=== PATIENT | male | born 1940 | race Caucasian/White ===

== ENCOUNTER → 2016-11-06 | Outpatient (CLI) | payer OTHER, BC | LOC: FIMAGING 10:11 | PROVIDERS: ATTEND Psychiatry & Neurology Neurology | DX: R94.02 Abnormal brain scan (principal); J01.30 Acute sphenoidal sinusitis, unspecified; M99.71 Connective tissue and disc stenosis of intervertebral foramina of cervical region; M50.320 Other cervical disc degeneration, mid-cervical region, unspecified level; M50.323 Other cervical disc degeneration at C6-C7 level ==

== ENCOUNTER → 2016-11-17 | Outpatient (CLI) | payer OTHER, BC ==
--- NOTE | 2016-11-17 11:35 | CPEEG ---
[f rep st] ELECTROENCEPHALOGRAM DATE OF STUDY: 11/17/2016 DATE OF INTERPRETATION: 11/17/2016. INTERPRETATION: Normal EEG during wakefulness and partial sleep. There were no potentially epilept ogenic abnormalities present during the recording. REPORT: This EEG contains 9-10 Hz alpha activity to the posterior head regions. There was no abnor mal activation at rest, during photic stimulation or hyperventilation. The patient became drowsy an d intermittently fell into light sleep during the study. There was no abnormal activation during dr owsiness, light sleep, or during times of arousal. /[id number]/MODL
== END ==
LOC: FCPNEURO 08:47
PROVIDERS: ATTEND Psychiatry & Neurology Neurology
DX: R42 Dizziness and giddiness (principal)

== ENCOUNTER → 2018-09-13 | Outpatient (CLI) | payer OTHER, BC | LOC: FIMAGING 12:57 | PROVIDERS: ATTEND Orthopaedic Surgery | DX: M17.0 Bilateral primary osteoarthritis of knee (principal); K57.30 Diverticulosis of large intestine without perforation or abscess without bleeding; N40.0 Benign prostatic hyperplasia without lower urinary tract symptoms ==

== ENCOUNTER → 2018-09-20 | Outpatient (CLI) | payer OTHER, BC | LOC: FIMAGING 12:25 | PROVIDERS: ATTEND Orthopaedic Surgery | DX: M17.0 Bilateral primary osteoarthritis of knee (principal); M71.22 Synovial cyst of popliteal space [Baker], left knee; K57.30 Diverticulosis of large intestine without perforation or abscess without bleeding; N40.0 Benign prostatic hyperplasia without lower urinary tract symptoms ==

== ENCOUNTER 2018-09-21 05:52 | Observation (INO) | payer OTHER, BC ==
--- NOTE | 2018-09-09 09:05 | GHP ---
DATE OF ADMISSION: 09/21/2018 He will be an a.m. admission for surgery at the hospital on September 21, 2018. PROBLEM: Left knee arthritis. HISTORY OF PRESENT ILLNESS: The patient is a 78-year-old man admitted for a left total knee arthropl asty. He has bilateral knee degenerative arthritis. He has had progressive pain for the past 5 or 6 years. In the last couple of years, it has been particularly severe. He is using aspirin. The jared n is now significantly limiting his quality of life and his activities. PAST MEDICAL HISTORY: Six years ago he had a myocardial infarction. He had stents. He takes Cresto r for elevated cholesterol. Three years ago, he had a coronary arteriogram and was told that his cor onary arteries look good. 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 He also has early dementia. He is hearing impaired. No history of DVT, hepatitis, MRSA staph infection, or hereditary bleeding disorde rs. CURRENT MEDICATIONS: Two baby aspirins per day. Crestor 40 mg per day. ALLERGIES: Drug allergies: None. Metal allergy: None. Latex allergy: None. SOCIAL HISTORY: The patient is . He does not smoke cigarettes and occasionally drinks alcoho l. He is retired. FAMILY HISTORY: Noncontributory. PHYSICAL EXAMINATION: VITAL SIGNS: Height 6 feet 1 inch. Weight 165 pounds. BMI 21.8. EYES: Con junctivae and sclerae are clear. Pupils are round and reactive. MOUTH: Good oral hygiene. No loos e teeth. CHEST: Clear. HEART: Regular rhythm. No murmurs. EXTREMITIES: Pertinent findings are limited to his left knee. He has a 5 degree flexion contracture and further flexion to 130 degrees. His ligaments are stable. He has a small effusion. Mild patellofemoral crepitation with active kne e extension. IMAGING: Films show medial compartment degenerative arthritis and severe patellofemoral arthritis in his left knee. He has advanced medial compartment degenerative arthritis in his right knee. IMPRESSION ON ADMISSION: 1. Left knee medial compartment degenerative arthritis and patellofemoral arthritis. He will underg o a left total knee arthroplasty. 2. Coronary artery disease. History of myocardial infarction. 3. Sleep apnea. 4. Hearing impaired. 5. Early dementia. 6. Right knee degenerative arthritis. PLAN: He will undergo a left total knee arthroplasty. The surgery has been described to him, includ ing the risks, complications, expectations, and recovery time. All his questions have been answered, and he consents to surgery. I have advised him that a small percentage of people do not get a good result with a total knee replacement and sometimes we cannot correct that. /[id number]/MODL
[2018-09-21] MEDS ORDERED: ROPIVACAINE 0.2% 80 MG, EPINEPHrine 0.2 MG, KETOROLAC TROMETHAMINE 30 MG in SYRINGE 0 ML IU ONE (06:00)
[2018-09-21] MEDS ORDERED: TRANEXAMIC ACID 3,000 MG in NS (SYRINGE) 50 ML IRR ONE (06:00)
[2018-09-21] MEDS ORDERED: POVIDONE-IODINE 20 ML in SODIUM CL IRRIG SOLUTION 500 ML IRR ONE (06:00)
[2018-09-21] MEDS ORDERED: TRANEXAMIC ACID 1,000 MG in NS 100 ML IV ONE (06:00)
[2018-09-21] MEDS ORDERED: ONDANSETRON 4 MG/2 ML VIAL IVP ONE (06:06)
[2018-09-21] MEDS ORDERED: DEXAMETHASONE 4 MG/ML VIAL IVP ONE (06:06)
[2018-09-21] MEDS ORDERED: FAMOTIDINE 20 MG TAB PO ONE (06:06)
[2018-09-21] MEDS ORDERED: ceFAZolin 2 GM/DEXTROSE 100 ML IV ONE (06:06)
[2018-09-21] MEDS ORDERED: ACETAMINOPHEN 325 MG TAB PO ONE (06:06)
[2018-09-21] MEDS ORDERED: GABAPENTIN 300 MG CAP PO ONE (06:06)
[2018-09-21] MEDS ORDERED: LR 1,000 ML IV ONE (06:09)
[2018-09-21] MEDS ORDERED: ONDANSETRON 4 MG/2 ML VIAL ONE ×2 (06:14→07:57)
[2018-09-21] MEDS ORDERED: ACETAMINOPHEN 325 MG TAB ONE (06:15)
[2018-09-21] MEDS ORDERED: DEXAMETHASONE 4 MG/ML VIAL ONE (06:16)
[2018-09-21] MEDS ORDERED: GABAPENTIN 300 MG CAP ONE (06:16)
[2018-09-21] MEDS ORDERED: CEFAZOLIN 2 GM/DEXTROSE/100 ML BAG IV ONE (06:16)
[2018-09-21] MEDS ORDERED: FAMOTIDINE 20 MG TAB ONE (06:16)
--- NOTE | 2018-09-21 06:49 | PDANEPAE ---
ANE History of Present Illness Left knee DJD, here for L TKA ANE Past Medical History - Cardiovascular History Hx Hypertension: No Hx Arrhythmias: No Hx Chest Pain: No Hx Coronary Artery / Peripheral Vascular Disease: Yes Hx CHF / Valvular Disease: No Hx Palpitations: No Cardiovascular History Comment: linq monitor - Pulmonary History Hx COPD: No Hx Asthma/Reactive Airway Disease: No Hx Recent Upper Respiratory Infection: No Hx Oxygen in Use at Home: Yes O2 in Use at Home (L/minute): 1.5 L when sleeping Hx Sleep Apnea: Yes Sleep Apnea Screening Result - Last Documented: Positive Pulmonary History Comment: PEEWEE not using CPAP machine, caused asthma. obstructive and central PEEWEE - Neurologic History Hx Cerebrovascular Accident: No Hx Seizures: No Hx Dementia: No - Endocrine History Hx Diabetes: No - Renal History Hx Renal Disorders: No - Liver History Hx Hepatic Disorders: No - Neurological & Psychiatric Hx Hx Neurological and Psychiatric Disorders: Yes Neurological / Psychiatric History Comment: depression - Cancer History Hx Cancer: No - Congenital Disorder History Hx Congenital Disorders: No - GI History Hx Gastrointestinal Disorders: No - Other Health History Other Health History: none - Chronic Pain History Chronic Pain: Yes (right knee) - Surgical History Prior Surgeries: 2011 required IABP stent to LAD. previously stent to circumflex. hiatel hernia repair. bilat inguinal hernia repair ANE Review of Systems Review of Systems: - Exercise capacity METS (RN): 4 METS ANE Patient History - Allergies Allergies/Adverse Reactions: LACTOSE INTOL Allergy (Intermediate, Uncoded 03/16/18 21:42) ACID REFLUX - Home Medications Home Medications: Cyanocobalamin (Vitamin B-12) [Vitamin B-12] 1,000 mcg PO DAILY 11/19/12 [Last Taken 09/14/18] Multivitamins [Multivitamin (*)] 1 each PO DAILY 11/19/12 [Last Taken 09/14/18] Rosuvastatin Calcium [Crestor 40mg (*)] 40 mg PO DAILY 11/19/12 [Last Taken ] Aspirin 162 mg PO DAILY 01/27/14 [Last Taken 09/14/18] Cholecalciferol (Vitamin D3) [Vitamin D3] 5,000 unit PO DAILY 03/03/16 [Last Taken 09/14/18] - NPO status NPO Since - Liquids (Date): 09/21/18 NPO Since - Liquids (Time): 02:00 NPO Since - Solids (Date): 09/20/18 NPO Since - Solids (Time): 18:00 - Smoking Hx Smoking Status: Former smoker - Family Anes Hx Family Hx Anesthesia Complications: sister electrolytes imbalanced. very sensitive to medications ANE Labs/Vital Signs - Vital Signs Blood Pressure: 113/76 Heart Rate: 59 Respiratory Rate: 12 O2 Sat (%): 96 Height: 185.42 cm Weight: 74.843 kg ANE Physical Exam - Airway Neck exam: FROM Mallampati Score: Class 2 Mouth exam: normal dental/mouth exam - Pulmonary Pulmonary: no respiratory distress, reduced air movement - Cardiovascular Cardiovascular: regular rate and rhythym, no murmur, rub, or gallop - ASA Status ASA Status: III ANE Anesthesia Plan Anesthesia Plan: GA with mask, spinal Regional Anesthesia: single shot NB Total IV Anesthesia: Yes
[2018-09-21] MEDS ORDERED: TRANEXAMIC ACID 3,000 MG/50 ML BAG IRR ONE (06:53)
[2018-09-21] MEDS ORDERED: MIDAZOLAM 2 MG/2 ML VIAL IVP ONE (06:54)
[2018-09-21] MEDS ORDERED: VANCOMYCIN 1 GM VIAL ONE (06:54)
[2018-09-21] MEDS ORDERED: ceFAZolin 1 GM/5 ML SYR ONE (06:54)
[2018-09-21] MEDS ORDERED: MIDAZOLAM 2 MG/2 ML VIAL ONE (06:55)
--- NOTE | 2018-09-21 07:01 | PDHPUP ---
History & Physical Update H&P update statement: This history and physical update is based on an assessment of the patient which was completed after admission or registration (within 24 hours), but prior to the surgery/procedure. H&P update: H&P reviewed & patient examined
[2018-09-21] MEDS ORDERED: fentaNYL 100 MCG/2 ML INJ ONE (07:05)
[2018-09-21] MEDS ORDERED: LIDOCAINE 2% 100 MG/5 ML SYR ONE (07:05)
[2018-09-21] MEDS ORDERED: BUPIVACAINE/DEXTROSE 7.5MG/ML 2 ML SPINAL AMP SP ONE (07:05)
[2018-09-21] MEDS ORDERED: PROPOFOL/EMULSION 500 MG/50 ML BOTTLE IV ONE (07:06)
[2018-09-21] MEDS ORDERED: ATROPINE SULFATE 1 MG/ML VIAL ONE (07:57)
[2018-09-21] MEDS ORDERED: PHENYLEPHRINE HCL 100 MCG/ML SYR ONE (07:57)
[2018-09-21] MEDS ORDERED: ROPIVACAINE HCL 150 MG/30 ML INJ ONE (07:57)
[2018-09-21] MEDS ORDERED: MEPERIDINE 25 MG/0.5 ML AMP IVP PRN (08:13)
[2018-09-21] MEDS ORDERED: NALOXONE HCL 0.4 MG/ML INJ IVP PRN (08:13)
[2018-09-21] MEDS ORDERED: oxyCODONE IR 5 MG TAB PO PRN (08:13)
[2018-09-21] MEDS ORDERED: fentaNYL 100 MCG/2 ML INJ IVP PRN (08:13)
[2018-09-21] MEDS ORDERED: ACETAMINOPHEN 500 MG TAB PO PRN (08:13)
[2018-09-21] MEDS ORDERED: DIAZEPAM 5 MG/ML 1 ML SYR IVP PRN (08:13)
[2018-09-21] MEDS ORDERED: LR 500 ML IV PRN (08:13)
[2018-09-21] MEDS ORDERED: HYDROmorphONE/DILAUDID 2 MG/ML INJ IVP PRN (08:13)
[2018-09-21] MEDS ORDERED: PROPOFOL 200 MG/20 ML VIAL ONE (08:52)
--- NOTE | 2018-09-21 09:29 | POSTOPPROG ---
Post Op Note Date of Operation: 09/21/18 Surgeon: Kyle Alonso Automotive Lot Attendant: Halina Anesthesiologist: Bandar Anesthesia: IV Sedation, Spinal Post-op Diagnosis: Left knee severe degenerative arthritis. Procedure: Left total knee arthroplasty, Bossman robot assisted. Inf/Abcess present in the surg proc area at time of surgery?: No EBL: 50-100 (Adductor canal block in PACU with indwelling catheter.)
[2018-09-21] MEDS ORDERED: ONDANSETRON DISINTEGRATING 4 MG TAB PO PRN (09:40)
[2018-09-21] MEDS ORDERED: POLYETHYLENE GLYCOL 3350 17 GM PKT PO PRN (09:40)
[2018-09-21] MEDS ORDERED: ONDANSETRON 4 MG/2 ML VIAL IVP PRN (09:40)
[2018-09-21] MEDS ORDERED: MAGNESIUM HYDROXIDE 30 ML UDCUP PO PRN (09:40)
[2018-09-21] MEDS ORDERED: BISACODYL 10 MG SUPP PR PRN (09:40)
[2018-09-21] MEDS ORDERED: PROMETHAZINE HCL 25 MG/ML INJ IVP PRN (09:40)
[2018-09-21] MEDS ORDERED: LACTULOSE 20 GM/30 ML UDCUP PO PRN (09:40)
[2018-09-21] MEDS ORDERED: NS 500 ML IV PRN (09:40)
[2018-09-21] MEDS ORDERED: diphenhydrAMINE 25 MG CAP PO PRN (09:40)
[2018-09-21] MEDS ORDERED: CYCLOBENZAPRINE 10 MG TAB PO PRN (09:40)
[2018-09-21] MEDS ORDERED: METOCLOPRAMIDE 10 MG/2 ML VIAL IVP PRN (09:40)
[2018-09-21] MEDS ORDERED: DIPHENOXYLATE/ATROPINE LOMOTIL 1 TAB PO PRN (09:40)
[2018-09-21] MEDS ORDERED: TEMAZEPAM 15 MG CAP PO PRN (09:40)
[2018-09-21] MEDS ORDERED: PROMETHAZINE HCL 25 MG SUPPR PR PRN (09:40)
[2018-09-21] MEDS ORDERED: LR 1,000 ML IV SCH (10:00)
--- NOTE | 2018-09-21 10:16 | GOP ---
DATE OF OPERATION: 09/21/2018 SURGEON: Kyle Alonso MD TALLOW REFINER: MIRIAN Courtney. Cameron Pollard CFA. ANESTHESIA: A combination of Marcaine, spinal, IV sedation, and adductor canal block. PREOPERATIVE DIAGNOSIS: Left knee severe degenerative arthritis. POSTOPERATIVE DIAGNOSIS: Left knee severe degenerative arthritis. PROCEDURE PERFORMED: A left knee Bossman robot-assisted total knee arthroplasty Thomas Gavin. FINDINGS: DESCRIPTION OF PROCEDURE: The patient was given 2 g of IV Ancef preoperatively within 60 minutes of surgery. He also received 1000 mg of IV tranexamic acid. He was placed on the operating room table and given spinal anesthesia with Marcaine by Dr. Ena Portillo. He was then placed supine and given IV sedation. A Hill catheter was not used. He wore a YULIET stocking and SCD on the nonoperative leg. His left lower extremity was prepped with ChloraPrep from the upper thigh tourniquet to the tips of the toes. It was draped free using sterile sheets, stockinette, and Ioban plastic adhesive drapes. The lower leg was wrapped with compressive Coban. The World Health Organization time-out was performed to verify the correct patient identity and the correct surgical side and site. The [place] time-out was also performed. The Aspyrao leg holding device was sterilely attached to the operating room table and used throughout the procedure to help position the knee. Two 3 mm partially threaded pins were inserted in a bicortical fashion in the anteromedial cortex of the tibia about 4 inches distal to the tibial tubercle. The leg was exsanguinated with elevation and a 6-inch wrap, and the tourniquet was inflated to 250 mmHg. I made a straight midline incision centered on the patella. Subcutaneous tissues were sharply divided, and hemostasis was obtained using electrocautery. A medial subcutaneous flap was developed, and the capsule and synovium were opened in a medial parapatellar fashion. His medial capsule was lightly elevated off the rim of the medial tibial plateau. Two 3 mm partially threaded pins were inserted in the medial cortex of the distal femur in the supracondylar region through the surgical incision. The femoral check point was inserted just anterior and in between the 2 pins. The tibial check point was inserted on the anteromedial cortex of the tibia about an inch distal to the joint line. The computer arrays were attached and I confirmed that both the femur and tibial arrays were visualized by the computer. In order to improve the exposure, the patella was prepared first. The original thickness of the patella was measured. Peripheral osteophytes were removed. I cut a flat surface on the back of the patella. He was sized for a 38 mm asymmetric patella, which was 11 mm in thickness. I removed enough bone from the patella such that the remaining bone plus the thickness of the patellar component recreated the original thickness of the patella. The composite thickness was 25 mm. The bony anatomy of the knee was registered on the computer starting with the center rotation of the femoral head followed by the medial and lateral malleoli. The femoral and tibial surface anatomy were registered. Peripheral osteophytes on the edge of the femoral condyles were then removed. I performed dynamic joint balancing. He was slightly tight medially. The preoperative plan called for a size 6 femur and a size 6 tibia. In order to achieve proper gap balancing in extension and flexion, I moved the femoral component anteriorly 2 mm, the femoral component distally 1 mm, and added 1 degree of varus to the proximal tibia. The final gaps were 18 and 19 mm. The gaps were equal in full extension, and 90 degrees of flexion. The robotic saw was brought in and registered. I made the appropriate cuts on the distal femur. The robot was then used to make my proximal tibial cut. I used the jig and reciprocating saw to create the notch in the distal femur to accommodate the posterior stabilized femoral component. The size 6 femoral trial was applied. I was careful that it was centered properly on the distal femur. The posterior compartment was cleared of meniscal remnants. Osteophytes were removed from the back of the femoral condyles. 40 mL of the joint anesthetic cocktail was injected into the posterior capsule, the quadriceps muscle and tendon areas, and the subcutaneous tissues along the skin edges. The tibia was sized for a size 6 component. The central fin punch was used. He had excellent quality bone, and I was using press-fit components. With the trial components in place, I selected a 9 mm posterior stabilized tibial insert. The knee came to within 2 or 3 degrees of full extension and flexed to 135 degrees. The collateral ligaments were stable and balanced in full extension and 90 degrees of flexion. His computer gaps were 18-19 mm medially and laterally in 90 degrees of flexion and full extension. The press-fit tibial component was inserted and tapped securely into place. It was very tight. The femoral component was tapped into place and was an excellent fit. The 9 mm Triathlon posterior stabilized plastic insert was inserted and locked into place. The 38 mm asymmetric Thomas Triathlon Tritanium patellar component was inserted. I used a tightening device to compress it into the patellar bone. The knee lacked a couple of degrees of full extension and flexed to 135 degrees. The tourniquet was deflated. The total tourniquet time was 1 hour and 15 minutes. The knee was thoroughly irrigated with a dilute Betadine solution. 50 cc of tranexamic acid solution was instilled into the joint and left there. The vastus medialis portion of the extensor mechanism was repaired with several interrupted [id number] #2 FiberWire sutures. The capsule and synovium were closed first with multiple interrupted [id number] 0 PDS sutures, followed by a running #2 barbed Ethicon Stratafix PDO suture. Subcutaneous tissues were closed with a running 0 barbed Ethicon Stratafix Monoderm suture. The skin was closed with a running 3-0 barbed Ethicon Stratafix Monoderm subcuticular suture. The skin was sealed with half-inch Steri-Strips. The wound was covered with a large sterile Mepilex waterproof dressing. The knee was wrapped with a 6-inch compressive wrap. A long-leg YULIET stocking and SCD were applied, followed by the cooling device. The sacral Mepilex dressing was applied. I used a size 6 Thomas Triathlon press-fit posterior stabilized femoral component, a size 6 Triathlon Tritanium press-fit tibial component, a 38 mm x 11 mm asymmetric patellar component, and a 9 mm posterior stabilized tibial insert. The sponge and needle count were correct on 2 occasions. He was awakened from anesthesia, transferred to his gurney, and taken to PACU in satisfactory condition. There were no recognized intraoperative complications. In the PACU, for additional postoperative pain control, Dr. Portillo performed an adductor canal block with an indwelling catheter. Tñoo Pennington and Cameron Pollard acted as surgical assistants. Their assistance was a medical necessity for safe completion of the procedure. Copy requested to: [facility] Cameron Pollard [facility] /[id number]/MODL MTDD
--- NOTE | 2018-09-21 10:31 | POSTANESTH ---
Post Anesthetic Evaluation Cardiovascular Status: Normal, Stable Respiratory Status: Normal, Stable Level of Consciousness/Mental Status: Can Participate in Eval, Alert and Oriented Pain Control: Adequate, Prn Tx Ordered Nausea/Vomiting Control: Adequate, Prn Tx Ordered Complications Possibly Related to Anesthesia: None Noted (AC catheter done without comp under steril conditions)
[2018-09-21] MEDS: oxyCODONE IR 5 MG TAB PO PRN ×2 (10:58→15:00)
[2018-09-21] MEDS: ACETAMINOPHEN 325 MG TAB PO SCH ×3 (12:03→23:01)
[2018-09-21] MEDS: KETOROLAC 15 MG/1 ML SDV IVP SCH ×3 (12:03→23:01)
[2018-09-21] MEDS: ceFAZolin 2 GM/DEXTROSE 100 ML IV SCH ×2 (13:51→20:32)
[2018-09-21] MEDS: ASPIRIN 325 MG TAB PO SCH (20:32)
[2018-09-21] MEDS: SENNOSIDES/DOCUSATE SODIUM TAB PO SCH (20:32)
[2018-09-21] MEDS: FAMOTIDINE 20 MG TAB PO SCH (20:34)
[2018-09-22] MEDS: ACETAMINOPHEN 325 MG TAB PO SCH ×2 (05:38→11:35)
[2018-09-22] MEDS: KETOROLAC 15 MG/1 ML SDV IVP SCH (05:38)
[2018-09-22] MEDS ORDERED: FERROUS SULFATE 325 MG TAB PO SCH (08:00)
[2018-09-22] MEDS ORDERED: LIPID EMULSION 20% 100 ML IV PRN (08:21)
[2018-09-22] MEDS: FAMOTIDINE 20 MG TAB PO SCH (09:00)
[2018-09-22] MEDS: ASPIRIN 325 MG TAB PO SCH (09:00)
[2018-09-22] MEDS: SENNOSIDES/DOCUSATE SODIUM TAB PO SCH (09:00)
[2018-09-22] MEDS ORDERED: ROSUVASTATIN CALCIUM 40 MG TAB PO SCH (09:00)
--- NOTE | 2018-09-22 10:14 | PDPAINCON ---
Pain Management Consultation Patient referred by : Celeste - Subjective Pain at rest (/10): 2 Pain with activity (/10): 3 Pain is: low, well controlled Side effects include: No drowsy, No itchiness, No nausea Activity: able to ambulate - Objective Site: femoral Catheter site: clean, dry, intact, no erythema/edema/exudate Sensory and motor exam: consistent with block Vital signs: stable - Assessment/Plan Assessment/Plan: other Additional comments: Bolused catheter with ropivicane 0.5% 20 ml. aspiration q 5ml, negative heme. Pt tolerated well. Catheter removed, atraumatic, tip intact. Pt may d/c to home.
--- NOTE | 2018-09-22 11:16 | SOAPPROG ---
SOAP Progress Note Assessment/Plan: Assessment: Afebrile. Awake and alert. Has been walking in tavares. ROM 5-110 degrees. Films look excellent. H/H is good. Plan:DC when cleared by PT. 09/22/18 11:15 Objective: Vital Signs Temp Pulse Resp BP Pulse Ox 36.5 C 72 16 104/67 92 09/22/18 08:00 09/22/18 08:00 09/22/18 08:00 09/22/18 08:00 09/22/18 08:00 Laboratory Results 09/22/18 04:24 09/21/18 09/22/18 09/23/18 05:59 05:59 05:59 Intake Total 3090 Output Total 2600 325 Balance 490 -325 ICD10 Worksheet Patient Problems: Problems Problem Status Onset Osteoarthritis of left knee Acute Nausea Acute
[2018-09-22 11:30] VITALS: BP 101/58
--- NOTE | 2018-09-22 11:32 | ASMTLACE ---
RUBINA Length of stay for Answers: 2 days current admission Acuity / Level of Answers: No Care: Did the patient have an inpatient admission? Comorbidities - select Answers: Coronary Artery Disease all that apply Opioid dependence / Chronic pain Previous myocardial infarction # of Emergency department Answers: 1-2 visits in the last 6 months Social determinants Answers: Mental health diagnosis (anxiety, depression, pers onality disorders, etc.) Score: 13 Date Signed: 09/22/2018 11:31 AM Electronically Signed By:GINETTE Keating
--- NOTE | 2018-09-22 11:33 | ASMTCMCOM ---
CM Note CM Note Notes: Pt had planned OA of knee. PT rec home/outpatient. Pt medically stable for d/c with spouse. No CM d/c needs identified. Date Signed: 09/22/2018 11:33 AM Electronically Signed By:GINETTE Keating
[2018-09-22] MEDS: oxyCODONE IR 5 MG TAB PO PRN (11:36)
--- NOTE | 2018-09-22 11:36 | GDS ---
ADMISSION DIAGNOSIS: Left knee severe degenerative arthritis. DISCHARGE DIAGNOSIS: Left knee severe degenerative arthritis. OPERATION PERFORMED: September 21, 2018, a left total knee arthroplasty, Bossman robot assisted. POSTOPERATIVE COMPLICATIONS: None. CONDITION ON DISCHARGE: Improved. DESCRIPTION OF HOSPITAL COURSE: The patient was admitted to the hospital the morning of surgery. Hi s admission CBC was normal. The same day, under a combination of Marcaine, spinal, IV sedation, and adductor canal block, he underwent a Bossman assisted left total knee arthroplasty. Postoperatively, he was treated with multimodal DVT prophylaxis, including aspirin. On the first postoperative day, his hemoglobin and hematocrit were 13.6 and 39.4. He required urinar y catheterization 2 times on the evening of surgery. After that, he was able to void spontaneously. He was seen by Physical Therapy and made rapid progress with ambulation, stairs, and knee range of m otion. By the time of discharge, he was afebrile and was independent walking with his walker. DISPOSITION: The patient discharged to his home. [facility] He may progress to full weightbearing on the left as tolerated. Work on range of motion. Con natalieue YULIET stockings for 1 week. Continue aspirin 325 mg p.o. daily for 21 days. He has prescription s for Celebrex, oxycodone, and tramadol for pain control. I will see him back in the office on 2018. If there are any problems, he is to call me at the office. /[id number]/MODL
== END 2018-09-22 12:04 | disposition home or self-care (01) ==
LOC: F3N 05:52 → INTOOBSV 05:52 → F3N 10:39
PROVIDERS: ADMIT Orthopaedic Surgery; ATTEND Orthopaedic Surgery
DX: M17.12 Unilateral primary osteoarthritis, left knee (principal); E78.5 Hyperlipidemia, unspecified; G47.33 Obstructive sleep apnea (adult) (pediatric); I25.10 Atherosclerotic heart disease of native coronary artery without angina pectoris; I25.2 Old myocardial infarction; H91.90 Unspecified hearing loss, unspecified ear; F03.90 Unspecified dementia, unspecified severity, without behavioral disturbance, psychotic disturbance, mood disturbance, and anxiety; Z79.82 Long term (current) use of aspirin; Z87.891 Personal history of nicotine dependence; Z82.49 Family history of ischemic heart disease and other diseases of the circulatory system; Z82.3 Family history of stroke; Z95.5 Presence of coronary angioplasty implant and graft
CPT/HCPCS: 27447; 73560; 77073; 88311; 97110; 97116; 97161; 97165; 97530; C1776; J0171; J0461; J0690; J1100; J1885; J2001; J2250; J2370; J2405; J2704; J2795; J3010; J3370

== ENCOUNTER → 2018-12-01 | Outpatient (CLI) | payer OTHER, BC | LOC: FIMAGING 17:39 | PROVIDERS: ATTEND Psychiatry & Neurology Neurology | DX: G31.9 Degenerative disease of nervous system, unspecified (principal); J32.3 Chronic sphenoidal sinusitis | CPT/HCPCS: 70551-PN ==

== ENCOUNTER → 2018-12-22 | Outpatient (CLI) | payer OTHER, BC | LOC: FIMAGING 10:09 | PROVIDERS: ATTEND Orthopaedic Surgery | DX: M17.11 Unilateral primary osteoarthritis, right knee (principal) ==

== ENCOUNTER 2019-01-04 05:44 | Inpatient (IN) | payer OTHER, BC ==
--- NOTE | 2018-12-20 10:58 | GHP ---
[f rep st] PREOP HISTORY AND PHYSICAL He will be an a.m. admission for surgery at [facility] on January 04, 2019. PROBLEM: Right knee arthritis. HISTORY OF PRESENT ILLNESS: The patient is a 78-year-old man admitted for a right total knee arthrop lasty. He has a history of bilateral knee degenerative arthritis. He has had progressive pain for t he past 5 or 6 years. In the last couple of years, the pain has been particularly severe. The pain is significantly limiting the quality of his life and his activities. On September 21, 2018, he underw ent a left Bossman assisted robot total knee arthroplasty. He is making a good recovery from that surge ry. He is admitted now for a right total knee arthroplasty. PAST MEDICAL HISTORY: Six years ago he had a myocardial infarction. He had stents. He is on Cresto r for elevated cholesterol. Three years ago, he had a coronary arteriogram, and was told that his co ronary arteries looked good. 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 He has early dementia, and he cheung s hearing impairment. No history of DVT, hepatitis, MRSA staph infections or hereditary bleeding dis orders. CURRENT MEDICATIONS: 1. Two baby aspirins per day. He will stop that in preparation for the surgery. 2. Crestor 40 mg per day. ALLERGIES: Drug allergies: None. Metal allergy: None. Latex allergy: None. SOCIAL HISTORY: The patient is . He does not smoke cigarettes and occasionally drinks alcoho l. He is retired. FAMILY HISTORY: Noncontributory. PHYSICAL EXAMINATION: VITAL SIGNS: Height 6 feet 1 inch. Weight 165 pounds. BMI 21.8. EYES: The conjunctivae and sclerae are clear. Pupils are round and reactive. MOUTH: Good oral hygiene. No loose teeth. CHEST: Clear. HEART: Regular rhythm. No murmurs. EXTREMITIES: Pertinent findings limited to his right knee. He lacks a couple of degrees of full extension and flexes to 125 degrees. His ligaments are stable. He has a small effusion. He is tender along the medial joint line. Mil d pseudolaxity of his medial collateral ligament. Mild patellofemoral crepitation with active knee e xtension. IMAGING: Films show advanced medial compartment degenerative arthritis in the right knee. He also h as significant patellofemoral arthritis. IMPRESSION ON ADMISSION: 1. Right knee advanced medial compartment and patellofemoral arthritis. He is prepared for a right knee Bossman robot assisted total knee arthroplasty. 2. Approximately 3 months status post left total knee arthroplasty with a good result. 3. Coronary artery disease and history of myocardial infarction. 4. Early dementia. 5. Hearing impairment. PLAN: He will undergo a right total knee arthroplasty. The surgery has been described to him, inclu ding the risks, complications, expectations, and recovery time. I stressed the importance of postope rative physical therapy. I have advised him that with bilateral procedures, there can be mild side-t o-side differences in the recovery and even in the final result. All their questions have been answe red, and he consents to surgery. /[id number]/MODL
[2019-01-04] MEDS ORDERED: ONDANSETRON 4 MG/2 ML VIAL IVP ONE (05:54)
[2019-01-04] MEDS ORDERED: FAMOTIDINE 20 MG TAB PO ONE (05:54)
[2019-01-04] MEDS ORDERED: ACETAMINOPHEN 325 MG TAB PO ONE (05:54)
[2019-01-04] MEDS ORDERED: ceFAZolin 2 GM/DEXTROSE 100 ML IV ONE (05:54)
[2019-01-04] MEDS ORDERED: DEXAMETHASONE 4 MG/ML VIAL IVP ONE (05:54)
[2019-01-04] MEDS ORDERED: GABAPENTIN 300 MG CAP PO ONE (05:54)
[2019-01-04] MEDS ORDERED: LR 1,000 ML IV ONE (05:57)
[2019-01-04] MEDS ORDERED: TRANEXAMIC ACID 1,000 MG in NS 100 ML IV ONE (06:00)
[2019-01-04] MEDS ORDERED: TRANEXAMIC ACID 3,000 MG in NS (SYRINGE) 50 ML IRR ONE (06:00)
[2019-01-04] MEDS ORDERED: POVIDONE-IODINE 20 ML in SODIUM CL IRRIG SOLUTION 500 ML IRR ONE (06:00)
[2019-01-04] MEDS ORDERED: ROPIVACAINE 0.2% 80 MG, EPINEPHrine 0.2 MG, KETOROLAC TROMETHAMINE 30 MG in SYRINGE 0 ML IU ONE (06:00)
[2019-01-04] MEDS ORDERED: ceFAZolin 1 GM/5 ML SYR ONE (06:45)
[2019-01-04] MEDS ORDERED: TRANEXAMIC ACID 3,000 MG/50 ML BAG IRR ONE (06:47)
[2019-01-04] MEDS ORDERED: MIDAZOLAM 2 MG/2 ML VIAL IVP ONE (06:59)
[2019-01-04] MEDS ORDERED: MIDAZOLAM 2 MG/2 ML VIAL ONE (07:00)
[2019-01-04] MEDS ORDERED: PROPOFOL/EMULSION 500 MG/50 ML BOTTLE IV ONE ×3 (07:03→08:42)
[2019-01-04] MEDS ORDERED: BUPIVACAINE 0.5% 30 ML SDV ONE (07:04)
[2019-01-04] MEDS ORDERED: fentaNYL 100 MCG/2 ML INJ ONE (07:24)
[2019-01-04] MEDS ORDERED: ALBUTEROL 3 ML DEYVIAL IH PRN (07:54)
[2019-01-04] MEDS ORDERED: DEXAMETHASONE 4 MG/ML VIAL IVP PRN (07:54)
[2019-01-04] MEDS ORDERED: LABETALOL HCL 5 MG/ML 20 ML MDV IVP PRN (07:54)
[2019-01-04] MEDS ORDERED: NS 500 ML IV PRN ×2 (07:54→09:45)
[2019-01-04] MEDS ORDERED: NALOXONE HCL 0.4 MG/ML INJ IVP PRN (07:54)
[2019-01-04] MEDS ORDERED: oxyCODONE IR 5 MG TAB PO PRN ×2 (07:54→09:45)
[2019-01-04] MEDS ORDERED: HYDROCODONE/APAP 5/325 TAB PO PRN (07:54)
[2019-01-04] MEDS ORDERED: fentaNYL 100 MCG/2 ML INJ IVP PRN (07:54)
--- NOTE | 2019-01-04 07:54 | PDANEPAE ---
ANE History of Present Illness here for R TKA ANE Past Medical History - Cardiovascular History Hx Hypertension: No Hx Arrhythmias: No Hx Chest Pain: No Hx Coronary Artery / Peripheral Vascular Disease: Yes Hx CHF / Valvular Disease: No Hx Palpitations: No Cardiovascular History Comment: linq monitor - Pulmonary History Hx COPD: No Hx Asthma/Reactive Airway Disease: No Hx Recent Upper Respiratory Infection: No Hx Oxygen in Use at Home: Yes O2 in Use at Home (L/minute): 1.5 Hx Sleep Apnea: No Sleep Apnea Screening Result - Last Documented: Positive Pulmonary History Comment: PEEWEE not using CPAP machine, caused asthma. obstructive and central PEEWEE - Neurologic History Hx Cerebrovascular Accident: No Hx Seizures: No Hx Dementia: No - Endocrine History Hx Diabetes: No - Renal History Hx Renal Disorders: No - Liver History Hx Hepatic Disorders: No - Neurological & Psychiatric Hx Hx Neurological and Psychiatric Disorders: Yes Neurological / Psychiatric History Comment: depression - Cancer History Hx Cancer: No - Congenital Disorder History Hx Congenital Disorders: No - GI History Hx Gastrointestinal Disorders: No - Other Health History Other Health History: none - Chronic Pain History Chronic Pain: Yes (right knee) - Surgical History Prior Surgeries: 2011 required IABP stent to LAD. previously stent to circumflex. hiatel hernia repair. bilat inguinal hernia repair ANE Review of Systems Review of Systems: - Exercise capacity METS (RN): 4 METS ANE Patient History - Allergies Allergies/Adverse Reactions: lactose Allergy (Verified 12/16/18 14:13) - Home Medications Home Medications: Cyanocobalamin (Vitamin B-12) [Vitamin B-12] 1,000 mcg PO DAILY 11/19/12 [Last Taken 12/26/18] Multivitamins [Multivitamin (*)] 1 each PO DAILY 11/19/12 [Last Taken 12/26/18] Rosuvastatin Calcium [Crestor 40mg (*)] 40 mg PO DAILY 11/19/12 [Last Taken 03/18] Cholecalciferol (Vitamin D3) [Vitamin D3] 5,000 unit PO DAILY 03/03/16 [Last Taken 12/26/18] Aspirin [Aspirin 81mg (*)] 162 mg PO DAILY 12/16/18 [Last Taken 12/26/18] Ondansetron HCl [Zofran] 4 mg PO Q8HRS PRN 01/04/19 [Last Taken Unknown] celeCOXIB [Celebrex (*)] 200 mg PO DAILY 01/04/19 [Last Taken 01/03/19] oxyCODONE IR [Oxycodone Ir (*)] 5 - 10 mg PO Q4-6PRN PRN 01/04/19 [Last Taken Unknown] - NPO status NPO Since - Liquids (Date): 01/04/19 NPO Since - Liquids (Time): 05:00 NPO Since - Solids (Date): 01/03/19 NPO Since - Solids (Time): 18:00 - Smoking Hx Smoking Status: Former smoker - Family Anes Hx Family Hx Anesthesia Complications: sister electrolytes imbalanced. very sensitive to medications ANE Labs/Vital Signs - Vital Signs Blood Pressure: 108/78 Heart Rate: 61 Respiratory Rate: 16 O2 Sat (%): 93 Height: 185.42 cm Weight: 77.111 kg ANE Physical Exam - Airway Neck exam: FROM Mallampati Score: Class 1 - Pulmonary Pulmonary: no respiratory distress - Cardiovascular Cardiovascular: regular rate and rhythym - ASA Status ASA Status: III ANE Anesthesia Plan Anesthesia Plan: MAC, spinal
[2019-01-04] MEDS ORDERED: PHENYLEPHRINE HCL 100 MCG/ML SYR ONE (08:21)
[2019-01-04] MEDS ORDERED: DIPHENOXYLATE/ATROPINE LOMOTIL 1 TAB PO PRN (09:45)
[2019-01-04] MEDS ORDERED: METOCLOPRAMIDE 10 MG/2 ML VIAL IVP PRN (09:45)
[2019-01-04] MEDS ORDERED: CYCLOBENZAPRINE 10 MG TAB PO PRN (09:45)
[2019-01-04] MEDS ORDERED: POLYETHYLENE GLYCOL 3350 17 GM PKT PO PRN (09:45)
[2019-01-04] MEDS ORDERED: TEMAZEPAM 15 MG CAP PO PRN (09:45)
[2019-01-04] MEDS ORDERED: BISACODYL 10 MG SUPP PR PRN (09:45)
[2019-01-04] MEDS ORDERED: diphenhydrAMINE 25 MG CAP PO PRN (09:45)
[2019-01-04] MEDS ORDERED: PROMETHAZINE HCL 25 MG SUPPR PR PRN (09:45)
[2019-01-04] MEDS ORDERED: MAGNESIUM HYDROXIDE 30 ML UDCUP PO PRN (09:45)
[2019-01-04] MEDS ORDERED: ONDANSETRON 4 MG/2 ML VIAL IVP PRN (09:45)
[2019-01-04] MEDS ORDERED: LACTULOSE 20 GM/30 ML UDCUP PO PRN (09:45)
[2019-01-04] MEDS ORDERED: ONDANSETRON DISINTEGRATING 4 MG TAB PO PRN (09:45)
[2019-01-04] MEDS ORDERED: PROMETHAZINE HCL 25 MG/ML INJ IVP PRN (09:45)
[2019-01-04] MEDS ORDERED: traMADol 50 MG TAB PO PRN (09:45)
[2019-01-04] MEDS ORDERED: LR 1,000 ML IV SCH (10:00)
--- NOTE | 2019-01-04 10:15 | GOP ---
[f rep st] OPERATIVE REPORT DATE OF OPERATION: 01/04/2019 SURGEON: Kyle Alonso MD PERSONAL INJURY LITIGATION PARALEGAL: 1. Toño Pennington PA-C. 2. Cameron Pollard CFA. ANESTHESIA: Combination of Marcaine spinal, IV sedation, and adductor canal block. ANESTHESIOLOGIST: Dr. Heladio Carney. PREOPERATIVE DIAGNOSIS: Right knee severe degenerative arthritis with varus deformity. POSTOPERATIVE DIAGNOSIS: Same. PROCEDURE PERFORMED: Right total knee arthroplasty, Bossman robot assisted, press-fit. FINDINGS: DESCRIPTION OF PROCEDURE: The patient was given 2 g of IV Ancef preoperatively within 60 minutes of surgery. He also received 1000 mg of preoperative IV tranexamic acid. He was placed on the operatin g room table and given spinal anesthesia with Marcaine by Dr. Carney. He was then placed supine and given IV sedation. A Hill catheter was not used. He wore a YULIET stocking and SCD on the nonoperativ e leg. His right lower extremity was prepped with ChloraPrep from the upper thigh tourniquet to the tips of the toes. It was draped free using sterile sheets, stockinette, and Ioban plastic adhesive d rape. His lower leg was wrapped with compressive Coban. The [employer] time-out was performed to verify the correct patient identity and the c orrect surgical side and site. The [place] time-out was also performed. The TidePoolo leg holding gabriel ce was sterilely attached to the operating room table and used throughout the procedure to help posit ion the knee. Two 3 mm partially-threaded pins were inserted in a bicortical fashion on the anterome dial cortex of the tibia about 4-5 inches distal to the tibial tubercle. At this point, the leg was exsanguinated with elevation and a 6-inch compressive wrap, and the pneumatic tourniquet was inflated to 250 mmHg. A straight midline incision was made, centered on the patella. Subcutaneous tissues were sharply div ided, and hemostasis was obtained using electrocautery. A medial subcutaneous flap was developed, an d the capsule and synovium were opened in medial parapatellar fashion. His medial capsule and perios teum were lightly elevated off the rim of the medial tibial plateau. He had a significant preoperati ve varus deformity, and I released the medial collateral ligament a moderate amount. Two 3 mm partia lly-threaded pins were inserted in the medial cortex of the distal femur in the supracondylar region and inside the incision. The femoral checkpoint was inserted anterior and distal to the 2 bicortical pins. The tibial checkpoint was inserted in the anteromedial cortex of the tibia about an inch dist al to the joint line. The computer arrays were attached, and I confirmed that the femoral and tibial arrays were both visualized by the computer. The bony anatomy of the knee was registered on the computer starting with the center rotation of the femoral head followed by the medial and lateral malleoli. The femoral and tibial surface anatomy wer e registered. Osteophytes were removed prior to joint balancing. I performed a dynamic joint balancing. The preoperative plan called for a size 7 femur and size 6 ti tyler. In order to achieve proper gap balancing, I added 1 mm of varus to the femur and 1 additional d egree of external rotation. On the tibial side, I added 3 degrees of varus and moved the tibia 1 mm distal. I ended up with medial and lateral gaps of 18 and 19 mm in both flexion and extension. Preo peratively, he had 6 or 7 degree flexion contracture. The robotic saw was positioned and registered. I made all the appropriate cuts on the distal femur. The robot was then registered for the tibia, and the proximal tibial cut was made. I used the appro priate jig to create a notch in the distal femur using the power reciprocating saw in order to accomm odate the posterior stabilized femoral component. I was careful to center the component on the dista l femur. The posterior compartment was cleared of meniscal remnants. Osteophytes were removed from the back o f the femoral condyles. 40 mL of the joint anesthetic cocktail was injected into the posterior capsu le, the quadriceps muscle and tendon areas, and the subcutaneous tissues along the skin edges. The tibia was sized for a size 6 component. I used the central thin punch. I drilled 2 additional f ixation holes on the medial side of the tibial plateau for the press-fit component. He had very good quality bone on both the distal femur and proximal tibia. With the trial components in place, I bibiana ected a 9 mm posterior stabilized tibial insert. He came to full extension and flexed to 130 degrees . His collateral ligaments were stable and balanced in full extension and 90 degrees of flexion. e computer registered gaps of 18 to 19 mm medially and laterally in 10 degrees of flexion and 90 degr ees of flexion. The press-fit tibia was inserted and tapped securely into place. It was very tight. The press-fit f emoral component was tapped securely into place and was also very tight. The 9 mm Triathlon tibial i nsert was inserted and locked into place. The tourniquet was deflated, and total tourniquet time up until this point was 1 hour and 6 minutes. The procedure was completed without the tourniquet. I then prepared the patella. The original thic kness of the patella was measured. Peripheral osteophytes were removed. I cut a flat surface on the back of the patella. He was sized for a 38 mm x 11 mm asymmetric Triathlon Tritanium press-fit choi llar component. I removed enough bone from the patella such that the remaining bone plus the thickne ss of the patellar component recreated the original thickness of the patella. The composite thicknes s was 25 mm. The press-fit patellar component was applied and tightened. Patellar tracking was chec ked and was excellent without any digital pressure. The wound was thoroughly irrigated with a dilute Betadine solution. 50 cc of tranexamic acid solutio n was instilled into the joint. The vastus medialis portion of the extensor mechanism was repaired with several interrupted figure-of -eight #2 FiberWire sutures. The capsule and synovium were closed first with multiple interrupted fi [id number]-fv-dhrrt 0 PDS sutures, followed by a running #2 barbed Ethicon Stratafix PDO suture. The subcu taneous tissues were closed with a running 0 barbed Ethicon Stratafix Monoderm suture. The skin was closed with a running 3-0 barbed Ethicon Stratafix Monoderm subcuticular suture. The skin was sealed with half-inch Steri-Strips. The wound was covered with a large sterile Mepilex waterproof dressing . A long-leg YULIET stocking was applied followed by 6-inch compressive wrap. The SCD was applied foll owed by the cooling device. The sacral Mepilex dressing was also applied. I used a size 7 Thomas Triathlon press-fit posterior stabilized femoral component, a size 6 Triathlo n Tritanium press-fit tibial component, and a 38 mm x 11 mm asymmetric patella press-fit component an d a 9 mm posterior stabilized tibial insert. COUNTS: The sponge and needle counts were correct on 2 occasions. He was awakened from anesthesia, transferred to his gurney, and taken to PACU in satisfactory conditi on. There were no recognized intraoperative complications. In the PACU, for additional postoperative pain control, Dr. Heladio Carney performed an adductor canal block with an indwelling catheter. Toño Pennington and Cameron Pollard acted as surgical assistants. Their assistance was a medical necess ity for safe completion of the procedure. /[id number]/MODL
[2019-01-04] MEDS ORDERED: KETOROLAC 15 MG/1 ML SDV IVP SCH (12:00)
--- NOTE | 2019-01-04 12:16 | POSTOPPROG ---
Post Op Note Date of Operation: 01/04/19 Surgeon: Kyle Alonso Cnc Set Up Operator: Halina Anesthesiologist: Rommel Anesthesia: IV Sedation, Spinal Post-op Diagnosis: Right knee degenerative arthritis with varus deformity Procedure: Bossman robot assisted right total knee arthroplasty Inf/Abcess present in the surg proc area at time of surgery?: No EBL: 50-100 (Adductor canal block with indwelling catheter in PACU.)
[2019-01-04] MEDS: ceFAZolin 2 GM/DEXTROSE 100 ML IV SCH ×2 (13:38→23:02)
--- NOTE | 2019-01-04 15:00 | PDMN ---
Medical Necessity Medical necessity: Pt meets IP criteria per PA & MCG S-700; est los >2 mn s/p R TKA (cpt 42410); comorbid advanced age, CAD, [place], early dementia & hearing impairment; per H&P & order 01/04/19
[2019-01-04] MEDS ORDERED: ACETAMINOPHEN 325 MG TAB PO SCH (15:45)
--- NOTE | 2019-01-04 16:44 | SOAPPROG ---
SOAP Progress Note Assessment/Plan: Assessment: s/p right TKA, PATRICIA assist - procedure ealier this morning Doing well Plan: Begin d/c planning - hoping to go home tomorrow. Familiar with the recovery since he had left TKA in August 2018. Will have support from his Continue VTE ppx - aspirin 325 mg once daily, YULIET borrego, PATRICKs Continue PT/OT efforts Continue oral pain medication - oxycodone, Tylenol, celebrex, flexeril, tramadol Subjective: Patient states he is doing well, he has started to noticed tingling in both feet. He reports a history of lumbar spinal stenosis. He denies SOB, CP, fever, chills. He is hoping to go home tomorrow, his will helping care for the patient. Objective: Vital Signs Temp Pulse Resp BP Pulse Ox 36.9 C 66 14 98/62 L 94 01/04/19 15:28 01/04/19 15:28 01/04/19 15:28 01/04/19 15:28 01/04/19 15:28 01/03/19 01/04/19 01/05/19 05:59 05:59 05:59 Intake Total 1050 Output Total 1100 Balance -50 Patient resting in bed, no acute distress. RLE: Wound dressings clean, dry and intact. No erythema, purulent drainage or signs of infection. Lower leg compartments are soft and nontender. Patient can actively DF and PF right foot and great toe against resistance. Grossly NVI distally. ICD10 Worksheet Patient Problems: Problems Problem Status Onset Osteoarthritis of right knee Acute Nausea Acute Osteoarthritis of left knee Acute
[2019-01-04] MEDS: ACETAMINOPHEN 325 MG TAB PO SCH (17:58)
[2019-01-04] MEDS: KETOROLAC 15 MG/1 ML SDV IVP SCH (20:20)
[2019-01-04] MEDS: FAMOTIDINE 20 MG TAB PO SCH (20:21)
[2019-01-04] MEDS: SENNOSIDES/DOCUSATE SODIUM TAB PO SCH (20:21)
[2019-01-04] MEDS: ASPIRIN 325 MG TAB PO SCH (20:21)
[2019-01-05] MEDS: KETOROLAC 15 MG/1 ML SDV IVP SCH ×2 (01:02→08:21)
[2019-01-05] MEDS: ACETAMINOPHEN 325 MG TAB PO SCH ×3 (01:02→11:23)
[2019-01-05] MEDS ORDERED: ROPIVACAINE HCL 150 MG/30 ML INJ ONE (06:36)
[2019-01-05] MEDS ORDERED: LIPID EMULSION 20% 100 ML IV PRN (06:37)
[2019-01-05] MEDS ORDERED: FERROUS SULFATE 325 MG TAB PO SCH (08:00)
[2019-01-05] MEDS: FAMOTIDINE 20 MG TAB PO SCH (08:23)
[2019-01-05] MEDS: ASPIRIN 325 MG TAB PO SCH (08:23)
[2019-01-05] MEDS: SENNOSIDES/DOCUSATE SODIUM TAB PO SCH (08:23)
--- NOTE | 2019-01-05 08:48 | SOAPPROG ---
SOAP Progress Note Assessment/Plan: Assessment: Assessment: 78 year old male s/p right TKA, PATRICIA assist - POD 1 Afebrile. Patient is up and walking. No significant pain at this time, . H/H is good. Dressing is dry. Films look good. (0-95) degrees of flexion. Plan: D/C home today Outpatient PT Continue oral pain mediation - Celebrex, Oxycodone, Tramadol, Tylenol Continue VTE ppx - aspirin 325 mg once daily for 21 days, YULIET hose x 1 week Take iron supplement x 1 month Subjective: Patient states he is doing very well this morning. He has no significant pain in the right knee. His , who is present in the room, informed me that she asked anesthesia to return later this morning/early afternoon to given the nerve block. She felt it was not necessary this morning because the patient was not in pain. He is hoping to go home today. He denies SOB, CP, fever, chills, nausea. No major complaints or concerns. Objective: Vital Signs Temp Pulse Resp BP Pulse Ox 36.6 C 67 18 117/67 97 01/05/19 07:28 01/05/19 07:28 01/05/19 07:28 01/05/19 07:28 01/05/19 07:28 Laboratory Results 01/05/19 04:34 01/04/19 01/05/19 01/06/19 05:59 05:59 05:59 Intake Total 2530 200 Output Total 3345 Balance -815 200 Patient resting in bed, no acute distress. RLE: Wound dressings clean, dry and intact. No erythema, purulent drainage or signs of infection. Lower leg compartments are soft and nontender. Patient can actively DF and PF right foot and great toe against resistance. Grossly NVI distally. ICD10 Worksheet Patient Problems: Problems Problem Status Onset Osteoarthritis of right knee Acute Nausea Acute Osteoarthritis of left knee Acute
[2019-01-05] MEDS ORDERED: ROSUVASTATIN CALCIUM 40 MG TAB PO SCH (09:00)
--- NOTE | 2019-01-05 10:38 | SOAPPROG ---
SOAP Progress Note Assessment/Plan: Assessment: Afebrile. Awake and alert. Almost no pain so far. His dressing is dry. Voiding spontaneously. Postop films and leg alignment film look excellent. Plan: Continue physical therapy today. Discharge later today. He will go to outpatient physical therapy next week. 01/05/19 10:37 Objective: Vital Signs Temp Pulse Resp BP Pulse Ox 36.6 C 67 18 117/67 97 01/05/19 07:28 01/05/19 07:28 01/05/19 07:28 01/05/19 07:28 01/05/19 07:28 Laboratory Results 01/05/19 04:34 01/04/19 01/05/19 01/06/19 05:59 05:59 05:59 Intake Total 2530 200 Output Total 3345 Balance -815 200 ICD10 Worksheet Patient Problems: Problems Problem Status Onset Osteoarthritis of right knee Acute Nausea Acute Osteoarthritis of left knee Acute
--- NOTE | 2019-01-05 10:55 | GDS ---
[f rep st] DISCHARGE SUMMARY ADMISSION DIAGNOSES: Right knee degenerative arthritis with varus deformity. DISCHARGE DIAGNOSIS: Right knee degenerative arthritis with varus deformity. OPERATION PERFORMED: 01/04/2019, a right total knee arthroplasty, Bossman robot assisted, press-fit. POSTOPERATIVE COMPLICATIONS: None. CONDITION ON DISCHARGE: Improved. DESCRIPTION OF HOSPITAL COURSE: The patient was admitted to the hospital on the morning of surgery. His preoperative CBC was normal. The same day, under a combination of Marcaine, spinal, IV sedation , and adductor canal block, he underwent a Bossman robot-assisted right total knee arthroplasty. Postop eratively, he was treated with multimodal DVT prophylaxis, including aspirin. He was seen by Physica l Therapy and made good progress with ambulation and stairs. By the time of discharge, he was afebri le and was independent in walking. DISPOSITION: Patient discharged to his home. He may progress to full weightbearing on the right as tolerated. He will start outpatient physical therapy next week. Continue aspirin 325 mg p.o. daily for 21 days. He has prescriptions for oxycodone, tramadol and Celebrex for pain control. I will see him back in the office on January 13, 2019. If any problems, he is to call me at the office. /[id number]/MODL
--- NOTE | 2019-01-05 11:46 | PDPAINCON ---
Pain Management Consultation Patient referred by : LIZZETH - Subjective Pain at rest (/10): 2 Pain with activity (/10): 2 Pain is: low, well controlled Activity: able to ambulate, participating in PT - Objective Technique: single shot nerve block Site: femoral Catheter site: clean, dry, intact, no erythema/edema/exudate Vital signs: stable - Assessment/Plan Assessment/Plan: other Additional comments: Bolused 0.5% Ropivicaine 20ml and removed catheter
[2019-01-05 13:39] VITALS: BP 108/63
--- NOTE | 2019-01-05 15:51 | ASMTLACE ---
RUBINA Length of stay for Answers: 2 days current admission Acuity / Level of Answers: Yes Care: Did the patient have an inpatient admission? Comorbidities - select Answers: Coronary Artery Disease all that apply Opioid dependence / Chronic pain Previous myocardial infarction # of Emergency department Answers: 0 visits in the last 6 months Social determinants Answers: Mental health diagnosis (anxiety, depression, pers onality disorders, etc.) Score: 15 Date Signed: 01/05/2019 03:49 PM Electronically Signed By:GINETTE Keating
--- NOTE | 2019-01-05 15:53 | ASMTCMCOM ---
CM Note CM Note Notes: Pt had planned R TKA. Pt had L TKA in August 2018. OT rec home, PT and rec outpatient. Pt resides with spouse. No CM d/c needs identified. Date Signed: 01/05/2019 03:52 PM Electronically Signed By:GINETTE Keating
== END 2019-01-05 12:44 | disposition home or self-care (01) | DRG 470 ==
LOC: F3N 05:44 → OBSVTOIN 09:51 → F3N 12:06
PROVIDERS: ADMIT Orthopaedic Surgery; ATTEND Orthopaedic Surgery
DX: M17.11 Unilateral primary osteoarthritis, right knee (principal); I25.2 Old myocardial infarction; E78.00 Pure hypercholesterolemia, unspecified; I25.10 Atherosclerotic heart disease of native coronary artery without angina pectoris; F03.90 Unspecified dementia, unspecified severity, without behavioral disturbance, psychotic disturbance, mood disturbance, and anxiety; H93.90 Unspecified disorder of ear, unspecified ear; G47.33 Obstructive sleep apnea (adult) (pediatric); Z96.642 Presence of left artificial hip joint; Z95.5 Presence of coronary angioplasty implant and graft
CPT/HCPCS: 97116-GP; 97161-GP; 97165-GO; J0171; J0690; J1100; J1885; J2250; J2370; J2405; J2704; J2795; J3010